=== PATIENT | female | born 1940 | race Two or more races ===

== ENCOUNTER 2017-09-30 09:58 | Emergency (ER) | payer MEDICAID ==
[~2017-09-30] VITALS: Ht 152.4 cm; Wt 68.9 kg
[2017-09-30 10:08] VITALS: Ht 152.4 cm; Wt 68.9 kg
[2017-09-30 13:37] VITALS: BP 137/95
== END 2017-09-30 13:37 | disposition home or self-care (01) ==
LOC: ED 09:58
DX: G89.29 Other chronic pain (principal); M25.551 Pain in right hip; I10 Essential (primary) hypertension
CPT/HCPCS: J1885; J3010